=== PATIENT | female | born 1975 | race Caucasian/White ===

== ENCOUNTER 2020-10-24 22:44 | Emergency (ER) | payer MEDICARE, OTHER ==
[~2020-10-24 22:44] MED LIST: BACTRIM DS TAB1 EACH PO; KEFLEX500 MG PO; NORVASC5 MG PO
[2020-10-25 02:01] LABS: HEMOGLOBIN 14.5 gm/dl (12.3-15.3); RED BLOOD COUNT 4.38 M/UL (4.00-5.10); WHITE BLOOD COUNT 11.1 K/UL (4.5-11.0)
[2020-10-25 03:02] LABS: BUN/CREATININE RATIO 20 (0-10)
[2020-10-25] MEDS ORDERED: CLEOCIN HCL300 MG PO (04:32)
[2020-10-25] MEDS ORDERED: PERCOCET 5/325 T1 EA PO (04:32)
[2020-10-25] MEDS ORDERED: PLAQUENIL 200200 MG PO (04:40)
== END 2020-10-25 05:18 | disposition home or self-care (01) ==
LOC: ER1 22:44
PROVIDERS: Physician Assistant
DX: L03.115 Cellulitis of right lower limb (principal); F17.210 Nicotine dependence, cigarettes, uncomplicated; Z90.49 Acquired absence of other specified parts of digestive tract
CPT/HCPCS: 73700; 80053; 83605; 85025; 85652; 86140; 87040; 99283; Q9967

== ENCOUNTER 2020-11-17 21:55 | Emergency (ER) | payer MEDICARE, OTHER ==
[~2020-11-17 21:55] MED LIST changes: +CLEOCIN HCL300 MG PO; +PERCOCET 5/325 T1 EA PO; +PLAQUENIL 200200 MG PO
[2020-11-18] MEDS ORDERED: CEPHALEXIN500 MG PO (00:46)
== END 2020-11-18 01:00 | disposition home or self-care (01) ==
LOC: ER1 21:55
DX: L98.499 Non-pressure chronic ulcer of skin of other sites with unspecified severity (principal); M06.9 Rheumatoid arthritis, unspecified; Z79.01 Long term (current) use of anticoagulants; F17.200 Nicotine dependence, unspecified, uncomplicated; X78.9XXA Intentional self-harm by unspecified sharp object, initial encounter
CPT/HCPCS: 99282

== ENCOUNTER 2020-11-22 06:46 | Emergency (ER) | payer MEDICARE, OTHER ==
[~2020-11-22 06:46] MED LIST changes: +CEPHALEXIN500 MG PO
[2020-11-22] MEDS ORDERED: PLAQUENIL 200200 MG PO (07:51)
== END 2020-11-22 08:13 | disposition home or self-care (01) ==
LOC: ER1 06:46
DX: L98.499 Non-pressure chronic ulcer of skin of other sites with unspecified severity (principal); F17.210 Nicotine dependence, cigarettes, uncomplicated; Z90.49 Acquired absence of other specified parts of digestive tract
CPT/HCPCS: 99282

== ENCOUNTER → 2020-11-24 | Outpatient (CLI) | payer MEDICARE, OTHER | LOC: KOH-I 10:00 | DX: G93.9 Disorder of brain, unspecified (principal) | CPT/HCPCS: 70450 ==

== ENCOUNTER → 2021-01-11 | Outpatient (CLI) | payer MEDICARE, OTHER ==
[2021-01-11 15:53] LABS: HEMOGLOBIN 13.7 gm/dl (12.3-15.3); RED BLOOD COUNT 4.48 M/UL (4.00-5.10)
[2021-01-11 16:22] LABS: BUN/CREATININE RATIO 19 (0-10)
[2021-01-12 08:14] LABS: COMPLEMENT C3, SERUM 153 mg/dL (82-167); COMPLEMENT C4, SERUM 17 mg/dL (12-38)
[2021-01-12 09:13] LABS: HBSAG SCREEN Negative (Negative)
[2021-01-13 08:15] LABS: HEP B CORE AB, TOT Negative (Negative)
== END ==
LOC: LAB 13:49
PROVIDERS: Internal Medicine; Nurse Practitioner Family
DX: Z11.59 Encounter for screening for other viral diseases (principal); M25.50 Pain in unspecified joint; R76.8 Other specified abnormal immunological findings in serum; D89.9 Disorder involving the immune mechanism, unspecified; I73.00 Raynaud's syndrome without gangrene; M32.9 Systemic lupus erythematosus, unspecified; Z79.899 Other long term (current) drug therapy
CPT/HCPCS: 36415; 80053; 81001; 82570; 82595; 83520; 84156; 85025; 85652; 86140; 86160; 86162; 86200; 86431; 86704; 86803; 87340

== ENCOUNTER → 2021-06-01 | Outpatient (CLI) | payer MEDICARE, OTHER | LOC: KOH-I 14:00 | DX: H53.8 Other visual disturbances (principal); F07.81 Postconcussional syndrome | CPT/HCPCS: 70450 ==